=== PATIENT | female | born 1975 | race Caucasian/White ===

== ENCOUNTER 2023-12-19 04:05 | Emergency (ER) | payer OTHER ==
[2023-12-19 04:15] VITALS: BP 119/63; PULSE 66; RESP 18; TEMP 100.4; BMI 25.4
[2023-12-19] MEDS ORDERED: ACETAMINOPHEN 325 MG TABLET (FP) ONE (05:12)
[2023-12-19] MEDS: ACETAMINOPHEN 325 MG TABLET (FP) PO ONE (05:17)
[2023-12-19] MEDS: PENICILLIN G BENZATHINE 1,200,000 UNIT/2 ML PFS IM ONE (06:31)
== END 2023-12-19 06:32 | disposition home or self-care (01) ==
LOC: JER 04:05
DX: M79.10 Myalgia, unspecified site (principal); J02.0 Streptococcal pharyngitis; R51.9 Headache, unspecified; Z20.822 Contact with and (suspected) exposure to COVID-19
CPT/HCPCS: 0241U-QW; 87651; 99284-25